=== PATIENT | female | born 1940 | race Caucasian/White ===

== ENCOUNTER 2021-01-22 13:40 | Emergency (ER) | payer OTHER, SELFPAY ==
[~2021-01-22] VITALS: Ht 160 cm; Wt 74.8 kg
[2021-01-22 13:49] VITALS: BP 146/76
--- NOTE | 2021-01-22 13:53 | NUR ---
BIBA TO BED 7
--- NOTE | 2021-01-22 14:23 | NUR ---
80 Y FEMALE BIBA FROM HOME C/O GENERALIZED WEAKNESS X 1 WEEK, N/V/D, LOWER BACK PAIN, HEADACHE X 2 DAYS. PT STATES SHE HAS HAD DIARRHEA ON AND OFF FOR THE PAST MONTH ALONG WITH N/V. PT ALSO STATES SHE HAS LOWER BACK AND ADBOMINAL PAIN FOR THE PAST WEEK. UPON ASSESSMENT ACTIVE BOWEL SOUNDS AND ABDOMEN IS TENDER TO PALPATION. PT ALSO STATES "SHE HAS BEEN FEELING WEEK AND UNLIKE HER NORMAL SELF." PMH: HTN, UTI NKA
[2021-01-22] MEDS ORDERED: NACL 0.9% 1,000 ML IV ONE (14:35)
[2021-01-22] MEDS ORDERED: ONDANSETRON 4 MG/2 ML VIAL IVP ONE (14:35)
--- NOTE | 2021-01-22 14:48 | NUR ---
AUTOMOTIVE SERVICE PORTER AT PT BEDSIDE.
--- NOTE | 2021-01-22 14:53 | NUR ---
lab at bedside
--- NOTE | 2021-01-22 14:53 | NUR ---
xray at bedside
--- NOTE | 2021-01-22 15:11 | NUR ---
COVID NOVEL AND REJI SWAB COLLECTED BEDSIDE
[2021-01-22 15:17] LABS: BASOPHILS % (AUTO) 0.6 % (0.0-2.0); EOSINOPHILS % (AUTO) 0.3 % (0.0-4.0); HEMATOCRIT 38.1 % (36-48); LYMPHOCYTES # (AUTO) 1.5 K/uL (2.5-16.5); LYMPHOCYTES % (AUTO) 29.4 % (20.5-51.1); MEAN CORPUSCULAR HEMOGLOBIN 30 pg (27-31); MEAN CORPUSCULAR HGB CONC 34 g/dL (33-37); MONOCYTES # (AUTO) 0.9 K/uL (0.8-1.0); MONOCYTES % (AUTO) 18.5 % (1.7-9.3); NEUTROPHILS # (AUTO) 2.6 K/uL (1.8-7.7); NEUTROPHILS % (AUTO) 51.2 % (42.2-75.2); PLATELET COUNT (AUTO) 26 K/uL (140-450); RED BLOOD CELL COUNT(AUTO) 4.28 MIL/uL (4.20-5.40); RED CELL DISTRIBUTION WIDTH 14.3 % (11.6-13.7); WHITE BLOOD COUNT (AUTO) 5.1 K/uL (4.8-10.8)
--- NOTE | 2021-01-22 15:20 | NUR ---
UA COLLECTED AND WALKED OVER TO LAB ALONG WITH COVID REJI AND COVID NOVEL SWABS
[2021-01-22 15:29] LABS: APPEARANCE,URINE CLEAR (CLEAR); BILIRUBIN,URINE NEGATIVE (NEGATIVE); BLOOD, URINE 1+ (NEGATIVE); COLOR,URINE YELLOW (YELLOW); LEUKOCYTE ESTERASE ,URINE NEGATIVE (NEGATIVE); NITRITE, URINE NEGATIVE (NEGATIVE); PH,URINE 6.5 (5.0-9.0); UGLUCOSE NEGATIVE (NEGATIVE)
[2021-01-22 15:38] LABS: ALBUMIN 3.4 g/dL (3.4-5.0); ANION GAP 14.4 (8-16); ASPARTATE AMINOTRANSFERASE 12 U/L (15-37); CARBON DIOXIDE 25.1 mmol/L (21-32); CHLORIDE 105 mmol/L (98-107); CREATININE 0.8 mg/dL (0.6-1.3); GLUCOSE 123 mg/dL (74-106); POTASSIUM 3.5 mmol/L (3.5-5.1); SODIUM SERUM 141 mmol/L (136-145); TOTAL BILIRUBIN 0.6 mg/dL (0.0-1.0); UREA NITROGEN, BLOOD 17 mg/dL (7-18)
--- NOTE | 2021-01-22 15:42 | NUR ---
abdominal ct consent obtained bedside from patient
[2021-01-22 15:54] LABS: WBC,URINE 0-5 /HPF (0-5)
--- NOTE | 2021-01-22 16:07 | NUR ---
pt taken to ct via [facility]
--- NOTE | 2021-01-22 16:22 | NUR ---
PT RETURNED TO BED [address] [facility] [facility]
--- NOTE | 2021-01-22 16:57 | NUR ---
PT AMBULATED TO RESTROOM, GAIT STEADY
[2021-01-22] MEDS ORDERED: cefTRIAXone 1,000 MG VIAL ONE (17:07)
[2021-01-22] MEDS ORDERED: MORPHINE SULFATE 4 MG/ML SYR IVP ONE (17:15)
[2021-01-22] MEDS ORDERED: AZITHROMYCIN 500 MG in DEXTROSE 5% 250 ML IV ONE (17:15)
--- NOTE | 2021-01-22 17:32 | NUR ---
pt taken to ct via [facility]
--- NOTE | 2021-01-22 17:33 | NUR ---
PT MOVED TO BED 1 FOR AIRBORNE ISOLATIONS
--- NOTE | 2021-01-22 17:39 | NUR ---
[facility] [address] [facility]
[2021-01-22] MEDS ORDERED: NACL 0.9% 500 ML IV ONE (18:10)
[2021-01-22] MEDS ORDERED: AZITHROMYCIN 500 MG INJ VIAL IV ONE (18:14)
[2021-01-22] MEDS ORDERED: ACETAMINOPHEN 325 MG TAB PO PRN (18:15)
[2021-01-22] MEDS ORDERED: MAG SULF 2000 MG/WATER PREMIX 50 ML IV PRN (18:15)
[2021-01-22] MEDS ORDERED: ZOLPIDEM 5 MG TAB PO PRN (18:15)
[2021-01-22] MEDS ORDERED: MORPHINE SULFATE 2 MG/ML SYR IVP PRN (18:15)
[2021-01-22] MEDS ORDERED: SODIUM PHOS / POTASSIUM PHOS 1 PKT PDR PO PRN (18:15)
[2021-01-22] MEDS ORDERED: LORazepam 2 MG/ML VIAL IM/IVP PRN (18:15)
[2021-01-22] MEDS ORDERED: ALBUTEROL HFA MDI 90 MCG/ACTUATION 8 GM INH PRN (18:15)
[2021-01-22] MEDS ORDERED: DOCUSATE SODIUM 100 MG GELCAP PO PRN (18:15)
[2021-01-22] MEDS ORDERED: HYDROcodone/APAP 5/325 MG 1 TAB TAB PO PRN (18:15)
[2021-01-22] MEDS ORDERED: ONDANSETRON 4 MG/2 ML VIAL IVP PRN (18:15)
[2021-01-22] MEDS: NACL 0.9% 1,000 ML IV SCH (18:15)
[2021-01-22] MEDS ORDERED: POTASSIUM CHLORIDE 10 MEQ TABER PO PRN (18:15)
--- NOTE | 2021-01-22 18:33 | NUR ---
CALLED PT SON TO OBTAIN PT MED REC. PT SON DID NOT ANSWER AND UNABLE TO LEAVE MESSAGE
[2021-01-22 18:45] LABS: PROTHROMBIN TIME 10.5 secs (10.8-13.4)
--- NOTE | 2021-01-22 18:50 | NUR ---
CALLED PT SON ON FILE TO OBTAIN PT MEDICATIONS. NO ANSWER AND UNABLE TO LEAVE VM
[2021-01-22 18:54] LABS: CHOL/HDL RATIO 3.3 (1-4.5); FREE T4 (FREE THYROXINE) 1.15 ng/dL (0.76-1.46); PHOSPHORUS 2.7 mg/dL (2.5-4.9); THYROID STIMULATING HORMONE 0.23 uIU/mL (0.34-3.74)
--- NOTE | 2021-01-22 19:00 | NUR ---
US BEDSIDE WITH PT
--- NOTE | 2021-01-22 19:06 | NUR ---
SPOKE WITH SRINIVAS, PT APPLIED RESEARCH DIRECTOR. SRINIVAS ASKED FOR COVID NEGATIVE RESULT TO BE FAXED TO [phone]
--- NOTE | 2021-01-22 19:13 | NUR ---
SPOKE WITH PT SON ZOILA IN REGARDS TO BRINING IN PT MEDICATIONS AND PICKING UP PT BELONGINGS
--- NOTE | 2021-01-22 19:18 | NUR ---
Pt report RECEIVED FROM VITO ALFORD. Transfer of care at this time.
--- NOTE | 2021-01-22 19:18 | NUR ---
Pt report given to VITO COATES. Transfer of care at this time.
--- NOTE | 2021-01-22 19:25 | NUR ---
PT IS A&O X4, IN STABLE CONDITION. VSS. PT STATED SHE JUST FEELS SICK AND IS TEARFUL, VOCAL ABOUT SADNESS AND 'S . ASSISTED PT WITH BED ROMERO USE, PT URINATED ABOUT 200MLS. DIAPER CHANGED AND REPOSITIONED PT. ALL NEEDS MET AT THIS TIME, BED LOCKED IN LOWEST POSITION, SIDE RAILS X2, AND CALL LIGHT IN REACH.
[2021-01-22] MEDS ORDERED: ZINC SULF 220 MG CAP PO SCH (21:00)
--- NOTE | 2021-01-22 21:25 | NUR ---
ASSISTED PT TO BED SIDE COMMODE, URINATED AOUT 200 CC, CLEAR YELLOW.
--- NOTE | 2021-01-22 22:05 | NUR ---
ASSISTED PT TO BED SIDE COMMODE, URINATED AOUT 200 CC, CLEAR YELLOW.
--- NOTE | 2021-01-22 23:08 | NUR ---
ASSISTED PT TO BED SIDE COMMODE, URINATED AOUT 200 CC, CLEAR YELLOW.
[2021-01-22] MEDS ORDERED: ONDA4TAB PO (23:11)
[2021-01-22] MEDS ORDERED: BEN10 PO (23:11)
[2021-01-22] MEDS ORDERED: AMLO5TAB PO (23:11)
[2021-01-22] MEDS ORDERED: AMLO-284 PO (23:11)
[2021-01-22] MEDS ORDERED: OMEP40EC24 PO (23:11)
[2021-01-22] MEDS ORDERED: ACET-2619 PO (23:11)
[2021-01-22] MEDS ORDERED: DULO30EC PO (23:11)
[2021-01-22] MEDS ORDERED: CEPH250C16 PO (23:11)
[2021-01-22] MEDS ORDERED: OMEP20EC11 PO (23:11)
[2021-01-22] MEDS ORDERED: LEVO0.2T5 PO (23:11)
--- NOTE | 2021-01-23 01:47 | NUR ---
pt is sleeping, equal rise and fall of chest wall. vss. all needs met at this time. bed locked in lowest position, side rails x2.
--- NOTE | 2021-01-23 03:38 | NUR ---
pt is sleeping. opens eyes to sound. equal rise and fall of chest wall, vss. bed locked in lowest position, side rails x2. all needs met at this time.
--- NOTE | 2021-01-23 04:16 | NUR ---
report given to floridalma Cazares over at [facility].
[2021-01-23] MEDS: NACL 0.9% 1,000 ML IV SCH (04:18)
--- NOTE | 2021-01-23 05:14 | NUR ---
[facility] TRANSPORT AT BEDSIDE
[2021-01-23 05:27] VITALS: BP 121/59
--- NOTE | 2021-01-23 05:27 | NUR ---
Patient to be transferred to [facility]. Is being transferred due to insurance. Receiving facility has accepting physician and available space. ER physician has signed transfer form. Patient or responsible democrat has agreed to transfer and signed form. Patient belongings inventoried and will be sent with patient. Copy of nursing notes, lab reports, EKG, Physicians Orders and X-rays to be sent with patient. Report called to floridalma garrett at receiving facility. [facility] has been called for transfer. ETA is 10.
--- NOTE | 2021-01-23 05:27 | NUR ---
PT TAKEN BY [facility] TRANSPORT TO [facility]
[2021-01-23 05:51] LABS: BASOPHILS % (AUTO) 0.2 % (0.0-2.0); HEMATOCRIT 37.7 % (36-48); HEMOGLOBIN 12.7 g/dL (12.0-16.0); LYMPHOCYTES # (AUTO) 0.8 K/uL (2.5-16.5); LYMPHOCYTES % (AUTO) 28.3 % (20.5-51.1); MEAN CORPUSCULAR HEMOGLOBIN 30 pg (27-31); MEAN CORPUSCULAR HGB CONC 34 g/dL (33-37); MEAN CORPUSCULAR VOLUME 90.3 fL (80-94); MONOCYTES # (AUTO) 0.1 K/uL (0.8-1.0); MONOCYTES % (AUTO) 5.2 % (1.7-9.3); NEUTROPHILS # (AUTO) 1.9 K/uL (1.8-7.7); NEUTROPHILS % (AUTO) 66.3 % (42.2-75.2); PLATELET COUNT (AUTO) 29 K/uL (140-450); RED BLOOD CELL COUNT(AUTO) 4.17 MIL/uL (4.20-5.40); RED CELL DISTRIBUTION WIDTH 14.5 % (11.6-13.7); WHITE BLOOD COUNT (AUTO) 2.8 K/uL (4.8-10.8)
[2021-01-23 08:31] LABS: ALBUMIN 3.1 g/dL (3.4-5.0); ANION GAP 12.1 (8-16); ASPARTATE AMINOTRANSFERASE 14 U/L (15-37); CARBON DIOXIDE 24.7 mmol/L (21-32); CHLORIDE 107 mmol/L (98-107); CREATININE 0.7 mg/dL (0.6-1.3); GLUCOSE 135 mg/dL (74-106); MAGNESIUM 1.7 mg/dL (1.8-2.4); POTASSIUM 3.8 mmol/L (3.5-5.1); SODIUM SERUM 140 mmol/L (136-145); TOTAL BILIRUBIN 0.5 mg/dL (0.0-1.0); UREA NITROGEN, BLOOD 11 mg/dL (7-18)
[2021-01-23] MEDS ORDERED: ENOXAPARIN 40 MG/0.4 ML SYR SUBQ SCH (09:00)
[2021-01-23] MEDS ORDERED: AZITHROMYCIN 250 MG TAB PO SCH (09:00)
[2021-01-23] MEDS ORDERED: ASCORBIC ACID 500 MG TAB PO SCH (09:00)
[2021-01-23] MEDS ORDERED: VITAMIN D 400 IU TAB PO SCH (09:00)
== END 2021-01-23 05:27 | disposition short-term general hospital (02) ==
LOC: MED 13:40
DX: J18.9 Pneumonia, unspecified organism (principal); Z20.822 Contact with and (suspected) exposure to COVID-19; N39.0 Urinary tract infection, site not specified; R53.1 Weakness; R51.9 Headache, unspecified; M79.10 Myalgia, unspecified site; D69.6 Thrombocytopenia, unspecified; I10 Essential (primary) hypertension
CPT/HCPCS: 36415; 70450; 71045; 74177; 76705; 80053; 80061; 81001; 82150; 83036; 83605; 83690; 83735; 83880; 84100; 84439; 84443; 84484; 85025; 85610; 85730; 87040; 87086; 87426; 93005; 96361; 96365; 96367; 96375; 99285; J0456; J0696; J2270; J2405; J7030; Q9967; U0003; Q0092